=== PATIENT | female | born 1985 | race Caucasian/White ===

== ENCOUNTER 2024-03-17 11:34 | Observation (INO) | payer BC ==
[2024-03-17] VITALS (11 sets, daily range): BP systolic 92–135; BP diastolic 53–92; PULSE 75–95; TEMP 97.9–98.8
[~2024-03-17] VITALS: Ht 170.3 cm; Wt 68.2 kg
[~2024-03-17 11:34] MED LIST: ATIVAN 0.50.5 MG/TAB PO; CARAFATE1 GM/10 ML PO; FLINTSTONES1 CTB PO; LORTAB 7.5/5001 TAB PO; LORTAB ELIX0.5 MG/ML PO; NO HOME MEDICATIONS; NORCO 325 MG-51 TAB; NORCO 325 MG-51 TAB PO; PHENERGAN 25 TA25 MG PO; PHENERGAN1.25 MG/ML PO; PREVACID 30MG30 M1 PO; PREVACID SOLUTA30 M2 PO; PROMETHAZI PO; PROMETHAZINE25 MG RC; RANITIDINE15 MG/M1 PO; XANAX .25M0.25 MG/TA PO; ZOFRAN 4MG T4 MG/TAB PO; ZOFRAN4 M1 PO
--- NOTE | 2024-03-17 11:40 | NUR ---
PATIENT IS A DIRECT ADMIT INTO ROOM 350 WITH KIDNEY STONE. UPON ARRIVAL PATIENT WAS IN A LOT OF PAIN AND TEARFUL. AT BEDSIDE. A&O BUT VERY ANXIOUS ABOUT SURGERY. PATIENT REPORTS SHE HAS NEVER HAD SURGERY BEFORE. CONFIRMED ALLERGIES, STATED 20 GAUGE IV INTO RIGHT HAND ON FIRST ATTEMPT, STARTED NS AND GAVE PRN IV DILAUDID FOR PAIN. UA SENT TO LAB. PATIENT CRYING DUE TO PAIN AND FEAR OF SURGERY. RN PROVIDED LOTS OF EDUCATION AND NOTIFIED PROVIDER TO CONSULT WITH PATIENT & BEFORE GOING DOWN TO OR. HEAD TO TOE ASSESSMENT COMPLETE. ORIENTED TO ROOM. CALL LIGHT IN REACH.
[2024-03-17] MEDS ORDERED: Morphine 4 MG/ML VIAL IV PRN (11:45)
[2024-03-17] MEDS ORDERED: HYDROmorphone 0.5 MG/0.5 ML SYRINGE IV PRN ×2 (11:45→17:00)
[2024-03-17] MEDS ORDERED: Naloxone 0.4 MG/ML VIAL IV PRN ×2 (11:45→13:15)
[2024-03-17] MEDS ORDERED: Ketorolac 15 MG/ML VIAL IV SCH ×2 (11:45→16:15)
[2024-03-17] MEDS ORDERED: Ondansetron 4 MG/2 ML VIAL IV PRN ×3 (11:45→13:15)
[2024-03-17] MEDS ORDERED: NS 1,000 ML IV SCH (11:45)
[2024-03-17] MEDS ORDERED: hydrALAZINE 20 MG/ML 1 ML VIAL IV PRN (12:00)
[2024-03-17] MEDS ORDERED: droPERidol 2.5 MG/ML 2 ML VIAL IV PRN (12:00)
[2024-03-17] MEDS ORDERED: LR 1,000 ML IV SCH (12:00)
[2024-03-17] MEDS ORDERED: fentaNYL 50 MCG/ML 1 ML SYRINGE/VIAL [PACU/SDC ONLY] IV PRN (12:00)
[2024-03-17] MEDS ORDERED: Ketorolac 15 MG/ML VIAL IV PRN (12:00)
[2024-03-17] MEDS ORDERED: Meperidine 50 MG/ML 1 ML VIAL IV PRN (12:00)
[2024-03-17] MEDS ORDERED: HYDROmorphone 1 MG/1 ML SYRINGE [PACU/SDC ONLY] IV PRN ×2 (12:00)
[2024-03-17] MEDS ORDERED: NS 10 ML IV ONE (12:18)
[2024-03-17] MEDS ORDERED: Ondansetron 4 MG/2 ML VIAL ONE (12:18)
[2024-03-17] MEDS ORDERED: dexAMETHasone 10 MG/ML VIAL ONE (12:18)
[2024-03-17] MEDS ORDERED: fentaNYL 50 MCG/ML 2 ML VIAL ONE (12:18)
[2024-03-17] MEDS ORDERED: FLOMAX 0.40.4 MG/CAP PO (12:31)
[2024-03-17] MEDS ORDERED: PERCOCET 325 MG1 TA2 PO (12:31)
[2024-03-17] MEDS ORDERED: TYLENOL 500MG500 MG PO (12:32)
[2024-03-17] MEDS ORDERED: ZOFRAN 4MG T4 MG/TAB PO (12:32)
[2024-03-17] MEDS ORDERED: MOTRIN 200200 MG/TAB PO (12:33)
--- NOTE | 2024-03-17 12:35 | NUR ---
AT BEDSIDE TO DISCUSS PROCEDURE WITH PATIENT AND .
--- NOTE | 2024-03-17 12:50 | NUR ---
PATIENT GOING DOWN TO OR VIA BED. OR STAFF OBTAINED CONSENT. PRE-OP FLUIDS INFUSING. COLLEEN AT BEDSIDE. PATIENT NOW OFF FLOOR.
[2024-03-17] MEDS ORDERED: Midazolam 2 MG/2 ML VIAL ONE (12:57)
[2024-03-17] MEDS ORDERED: PYRIDIUM 100MG100 MG PO (13:06)
[2024-03-17] MEDS ORDERED: NORCO 325 MG-51 TAB PO (13:07)
[2024-03-17] MEDS ORDERED: Iohexol 300 - 10 ML VIAL URETER-R ONE (13:10)
[2024-03-17] MEDS ORDERED: Hyoscyamine 0.125 MG Sublingual TAB SL PRN (13:15)
[2024-03-17] MEDS ORDERED: Acetaminophen 325 MG TAB PO PRN (13:15)
[2024-03-17] MEDS ORDERED: Lidocaine 2% (20 MG/ML) 20 ML UROJET UR ONE (13:24)
--- NOTE | 2024-03-17 14:30 | NUR ---
PATIENT IS BACK IN ROOM. A&O. NOTED SOFT B/P IN THE UPPER 80'S. PACU GAVE 750CC FLUID BOLUS. ALL OTHER VSS. PATIENT REPORTS MILD CRAMPS POST-OP OTHERWISE PAIN IS MUCH BETTER. NO C/O N/V. PATIENT LOOKING AT MENU. PATIENT ALSO VOIDED X1 IN PACU. PLAN IS TO DISCHARGE HOME LATER TODAY. AT BEDSIDE.
--- NOTE | 2024-03-17 15:20 | NUR ---
PATIENT TRIED TO EAT POSTOP BUT REPORTS THE APPLESAUCE & TOAST DIDN'T TASTE GOOD. PATIENT NOW REQUESTING NAUSEA MEDS. GAVE PRN IV ZOFRAN. SHE ALSO REPORTS HER CRAMPS IN HER KIDNEY ARE BACK AND IT DOESN'T HELP THAT SHE IS ON DAY 1 OF HER PERIOD. B/P HAS BEEN SOFT IN THE 'S AND PATIENT REQUIRED FLUID BOLUS IN PACU. GAVE PRN LEVSIN. NOTIFIED PROVIDER.
--- NOTE | 2024-03-17 16:00 | NUR ---
PATIENT STILL C/O NAUSEA AFTER IV ZOFRAN AND CONTINUES TO C/O PAIN HOWEVER SHE DOESN'T THINK SHE CAN KEEP DOWN A PAIN PILL. NOTIFIED PROVIDER FOR IV PAIN MEDS AND/OR CARE OPTIONS.
--- NOTE | 2024-03-17 16:15 | NUR ---
PATIENT CRYING, SHAKING, AND REPORTING SHE FEELS BAD SHE DID WHEN SHE CAME IN. PATIENT IS HIGH ANXIETY. NOTIFIED PROVIDER, GAVE IV TORADOL 30MG. STARTED A NEW BAG OF IV FLUIDS DUE TO PATIENT NOW ABLE TO TAKE IN ANYTHING ORALLY.
--- NOTE | 2024-03-17 16:35 | NUR ---
PATIENT IS NOW ON HER KNEES, CRYING, GASPING FOR AIR, AND SHAKING. PATIENT REPORTS SHARP ABD PAIN. GAVE PRN IV DILAUDID. NURSING ENCOURAGED PATIENT TO TRY AND VOID. PATIENT ASSISTED TO BATHROOM AND WAS ABLE TO VOID.
--- NOTE | 2024-03-17 17:35 | NUR ---
PATIENT VOIDED X3 SINCE ARRIVING BACK TO THE FLOOR POST-OP. PATIENT NOW STARTING TO FEEL BETTER. IV FLUIDS STILL INFUSING. PATIENT WILLING TO TRY 7UP & CRACKERS.
--- NOTE | 2024-03-17 19:00 | NUR ---
PT REMAINS TEARFUL, ANXIOUS AND REPORTS SHE "HURTS ALL OVER". UNABLE TO KEEP AZO DOWN AND HAD EMESIS IN BASIN. HAS IVF TO RT HAND INFUSING WITHOUT PROBLEM. SPOUSE AT BEDSIDE. HAS HAD MINIMAL INTAKE ORALLY.
[2024-03-17] MEDS ORDERED: Promethazine 25 MG in NS 50 ML IV PRN (20:15)
--- NOTE | 2024-03-17 20:20 | NUR ---
PT ASKING TO GO HOME. REPORTS SHE HAD ANOTHER EPISODE OF EMESIS AND NOW FEELS MUCH BETTER. ABLE TO KEEP SPRITE AND CRACKERS DOWN. PT VOIDING WITHOUT PROBLEM.
--- NOTE | 2024-03-17 20:40 | NUR ---
REMOVED PTS IV SITE FROM RT HAND, ANGIOCATH INTACT. DISCHARGE INSTRUCTIONS REVIEWED WITH PT AND SPOUSE. VERBALIZED UNDERSTANDING.
--- NOTE | 2024-03-17 21:00 | NUR ---
DISCHARGED TO PRIVATE CAR VIA W/C. PERSONAL BELONGINGS AND DISCHARGE INSTRUCTIONS SENT WITH PT.
[2024-03-17] MEDS ORDERED: Ketorolac 30 MG/ML VIAL IV SCH (22:15)
== END 2024-03-17 21:00 | disposition home or self-care (01) ==
LOC: SURG 11:34
PROVIDERS: ADMIT Urology
DX: N20.2 Calculus of kidney with calculus of ureter (principal)
CPT/HCPCS: C1769; G0378; G0379; J0690; J1100; J1170; J1885; J2250; J2405; J2704; J3010; J7030; Q9967